=== PATIENT | male | born 1945 | race African-American/Black ===

== ENCOUNTER 2020-04-30 11:11 | Inpatient (IN) | payer OTHER ==
[~2020-04-30] VITALS: Ht 188 cm; Wt 105.7 kg
[~2020-04-30 11:11] MED LIST: VICODIN ES TAB1 EACH PO
[2020-04-30 11:31] VITALS: BP 116/75
[2020-04-30 11:59] LABS: HEMOGLOBIN 16.5 gm/dL (14.0-18.0); MCH 31.3 pg (26.0-34.0); MCHC 35.2 g/dL (28.0-37.0); MCV 88.9 fL (80.0-100.0); MPV 8.1 fl. (7.2-11.1); NUCLEATED RBCS 0 /100WBC; PLATELET COUNT* 263 thou/uL (150-400); RBC 5.29 mil/uL (4.50-6.00); RDW-CV 12.3 % (10.5-14.5); WBC 9.3 thou/uL (4.0-11.0)
[2020-04-30 12:09] LABS: BE -3.6 mmol/L (-2 to +3); PCO2 24.4 mmHg (35.0-45.0); PO2 72.2 mmHg (75.0-100.0); pH 7.479 (7.340-7.450)
[2020-04-30 12:12] LABS: CALCIUM 8.9 mg/dL (8.5-10.1); CREATININE 1.7 mg/dL (0.6-1.3); POTASSIUM 4.1 mmol/L (3.5-5.1)
[2020-04-30 12:17] LABS: ALBUMIN 3.4 g/dL (3.4-5.0); MAGNESIUM 2.6 mg/dL (1.8-2.4); TOTAL BILIRUBIN 1.6 mg/dL (<0.1-1.0); TOTAL PROTEIN 8.3 g/dL (6.4-8.2)
[2020-04-30 12:44] LABS: ABSOLUTE LYMPHOCYTES 0.8 thou/uL (0.8-5.3); ABSOLUTE MONOCYTES 0.3 thou/uL (0.0-1.2); ABSOLUTE NEUTROPHILS 8.2 thou/uL (1.6-8.1); ATYPICAL LYMPHS 1 %; PLATELET ESTIMATE ADEQUATE
[2020-04-30 13:09] LABS: INR 1.1; PROTIME 11.5 Seconds (9.20-11.50)
--- NOTE | 2020-04-30 16:07 | EKG ---
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1945 Requested By: Zabrina Chi Order Number: [id number] MD: River Pagan Measurements Intervals [place] Rate: 112 P: 114 [place]: 162 QRS: 219 QRSD: 88 T: 175 QT: 363 QTc: 496 Interpretive Statements Right and left arm electrode reversal, interpretation assumes no reversal Sinus tachycardia Possible lateral infarct, age indeterminate Compared to ECG 02/17/2010 10:14:29 Leads which has occurred Sinus bradycardia no longer present Atrial premature complex(es) no longer present Electronically Signed On 04-30-2020 16:07:15 CDT by River Pagan [email or web address] <ELECTRONICALLY SIGNED> By: River Pagan MD, [facility] 04/30/20 1607 1144 1144 River Pagan MD, [facility] /EPI
[2020-04-30 16:48] VITALS: BP 148/79
[2020-04-30 17:29] LABS: URINE BILIRUBIN NEGATIVE (Negative); URINE BLOOD 1+ (Negative); URINE CLARITY CLEAR; URINE COLOR YELLOW; URINE GLUCOSE-RANDOM NEGATIVE (Negative); URINE KETONES 1+ (Negative); URINE LEUKOCYTES-REFLEX NEGATIVE (Negative); URINE NITRITE-REFLEX NEGATIVE (Negative); URINE PROTEIN 1+ (Negative); URINE SPECIFIC GRAVITY 1.025 (1.005-1.030)
[2020-04-30 17:36] LABS: CRYSTALS None Seen /LPF (None Seen); HYALINE CASTS 0-3 Few /LPF (None Seen); MUCUS None Seen strn/LPF (None Seen); SQUAMOUS 0-3 Few /LPF (0-3); URINE RBC 0-2 Rare /HPF (0-2); URINE WBC-REFLEX 0-5 Rare /HPF (0-5)
[2020-04-30 17:37] LABS: BACTERIA-REFLEX 1-9 Few /HPF (None Seen)
[2020-04-30 19:45] VITALS: BP 124/78
[2020-05-01 03:41] LABS: HEMATOCRIT 38.4 % (42.0-52.0); MCH 31.8 pg (26.0-34.0); MCHC 35.8 g/dL (28.0-37.0); MCV 88.9 fL (80.0-100.0); MPV 7.9 fl. (7.2-11.1); RBC 4.31 mil/uL (4.50-6.00); RDW-CV 12.2 % (10.5-14.5); WBC 5.9 thou/uL (4.0-11.0)
[2020-05-01 03:45] LABS: HEMOGLOBIN 13.7 gm/dL (14.0-18.0)
[2020-05-01 03:59] LABS: ALBUMIN 2.6 g/dL (3.4-5.0); CALCIUM 8.2 mg/dL (8.5-10.1); CREATININE 1.1 mg/dL (0.6-1.3); MAGNESIUM 2.7 mg/dL (1.8-2.4); POTASSIUM 4.4 mmol/L (3.5-5.1); TOTAL BILIRUBIN 0.7 mg/dL (<0.1-1.0); TOTAL PROTEIN 6.8 g/dL (6.4-8.2)
[2020-05-01 10:04] VITALS: BP 122/88
[2020-05-01 11:45] VITALS: BP 127/81
[2020-05-01 17:25] VITALS: BP 129/80
[2020-05-01 20:10] VITALS: BP 138/82
[2020-05-01] MEDS ORDERED: VITAMIN C500 M1 PO (21:24)
[2020-05-02] VITALS: BP 119/77
[2020-05-02 07:43] VITALS: BP 92/55
[2020-05-02 08:07] LABS: HEPATITIS B SURFACE AG Negative (Negative); HIV-1/HIV-2 ANTIBODY Non Reactive (Non Reactive)
[2020-05-02 12:41] VITALS: BP 119/76
[2020-05-02 12:48] VITALS: BP 119/76
[2020-05-02 13:06] LABS: ABSOLUTE LYMPHOCYTES 0.3 thou/uL (0.8-5.3); ABSOLUTE MONOCYTES 0.5 thou/uL (0.0-1.2); ABSOLUTE NEUTROPHILS 7.4 thou/uL (1.6-8.1); BASOPHILS 0.3 %; HEMOGLOBIN 14.3 gm/dL (14.0-18.0); LYMPHOCYTES 3.9 %; MCH 31.5 pg (26.0-34.0); MCHC 34.8 g/dL (28.0-37.0); MCV 90.5 fL (80.0-100.0); MONOCYTES 6.2 %; MPV 8.5 fl. (7.2-11.1); NUCLEATED RBCS 0 /100WBC; PLATELET COUNT* 244 thou/uL (150-400); POLYS 89.6 %; RBC 4.53 mil/uL (4.50-6.00); RDW-CV 12.2 % (10.5-14.5); WBC 8.2 thou/uL (4.0-11.0)
[2020-05-02 13:23] LABS: ALBUMIN 2.8 g/dL (3.4-5.0); CALCIUM 7.9 mg/dL (8.5-10.1); CREATININE 1.1 mg/dL (0.6-1.3); POTASSIUM 3.9 mmol/L (3.5-5.1); TOTAL BILIRUBIN 0.7 mg/dL (<0.1-1.0); TOTAL PROTEIN 7.1 g/dL (6.4-8.2)
[2020-05-02 19:50] VITALS: BP 148/74
[2020-05-03] VITALS: BP 138/82
[2020-05-03 08:00] VITALS: BP 134/111
[2020-05-03 12:15] LABS: NUCLEATED RBCS 0 /100WBC; WBC 7.6 thou/uL (4.0-11.0)
[2020-05-03 12:18] LABS: HEMATOCRIT 37.7 % (42.0-52.0); HEMOGLOBIN 13.1 gm/dL (14.0-18.0); MCH 31.1 pg (26.0-34.0); MCHC 34.8 g/dL (28.0-37.0); MCV 89.2 fL (80.0-100.0); MPV 8.7 fl. (7.2-11.1); PLATELET COUNT* 242 thou/uL (150-400); RBC 4.23 mil/uL (4.50-6.00); RDW-CV 12.5 % (10.5-14.5)
[2020-05-03 12:20] LABS: CALCIUM 7.5 mg/dL (8.5-10.1); POTASSIUM 3.9 mmol/L (3.5-5.1)
[2020-05-03 12:24] LABS: ALBUMIN 2.4 g/dL (3.4-5.0); MAGNESIUM 1.9 mg/dL (1.8-2.4); PHOSPHORUS* 2.1 mg/dL (2.5-4.9); TOTAL BILIRUBIN 0.4 mg/dL (<0.1-1.0)
[2020-05-03 12:37] LABS: ABSOLUTE LYMPHOCYTES 0.3 thou/uL (0.8-5.3); ABSOLUTE MONOCYTES 0.4 thou/uL (0.0-1.2); ABSOLUTE NEUTROPHILS 6.9 thou/uL (1.6-8.1); ANISOCYTOSIS 1+; PLATELET ESTIMATE ADEQUATE; POIKILOCYTOSIS 1+
[2020-05-03 16:40] LABS: CALCIUM 7.6 mg/dL (8.5-10.1); CREATININE 1.1 mg/dL (0.6-1.3); POTASSIUM 4.4 mmol/L (3.5-5.1)
[2020-05-03 16:43] LABS: MAGNESIUM 1.7 mg/dL (1.8-2.4); PHOSPHORUS* 2.7 mg/dL (2.5-4.9)
--- NOTE | 2020-05-03 17:40 | CON ---
[address] [address] CONSULTATION Name: MALIK BRUNO Room: [address] IN .R.#: [id number] Admission: 04/30/20 Attend Phys: Diego Massey MD Discharge: Date of : 47 Report #: [id number] THIS REPORT FOR: //name// cc: Lio Hernandez MD, Anthony MD ~ THIS REPORT FOR: //name// CC: Lio Massey DATE OF SERVICE: 05/03/2020 CONSULT REQUESTED BY: Dr. Camacho. INDICATION FOR CONSULTATION: Acute hypoxemic respiratory failure secondary to COVID-19. HISTORY OF PRESENT ILLNESS: This is a 74-year-old gentleman. He is a lifetime nonsmoker and does not have a previous history of cardiac or respiratory disease. The patient, however, does have a history of diabetes and his body mass index is elevated to 31. The patient is now admitted on 04/30/2020. Presentation was with a high-grade fever of 102 degrees Fahrenheit. The patient also had chills, was coughing, but not bringing up any sputum, was having significant increase in shortness of breath. The patient had had generalized weakness. He had also complained of aches and pains, had severe intractable nausea and vomiting and therefore, was unable to keep any fluids down. The patient was noted to be in acute renal failure with a creatinine of 1.7. His baseline creatinine is normal upon initial presentation. The patient since then has been fluid resuscitated. His creatinine has returned back to the normal range. The patient has also been treated with dexamethasone as well as remdesivir; however, there has been a progressive increase in his shortness of breath and oxygen needs. The patient initially required oxygen 4 liters to maintain O2 saturation in the low 90s. This was subsequently tapered down to 2 liters, but since then there has been a progressive increase in oxygen needs. The patient is currently on 8 liters nasal cannula and whenever he is opening his mouth, he is desaturating significantly, when asked to breathe exclusively through his nose he is maintaining O2 saturation in the low 90s. The patient is visibly short of breath at rest. He also reports increasing shortness of breath. He reports an increasing cough. He reports that there is only scanty amounts of sputum at this time still. The patient also has remained febrile with a temperature of 37.4 consistent with low-grade fever this morning. He does not have swelling of lower extremities, he does not have calf pain. I just had a stat chest x-ray performed. It does show significant infiltrates bilaterally. Most of these are new compared with the patient's initial chest x-ray performed on 04/30/2020. The patient is short [place] [address] CONSULTATION Name: MALIK BRUNO Chloe Room: [address] IN [facility]#: [id number] Admission: 04/30/20 Attend Phys: Diego Massey MD Discharge: Date of : 47 Report #: [id number] is able to provide only a limited review of systems as obtained from the patient. REVIEW OF SYSTEMS: Negative for 12 points except as mentioned above. PAST MEDICAL HISTORY: Diabetes. The patient has a normal creatinine at baseline and does not have a history of cardiac or respiratory disease. Obesity, body mass index elevated to 31. SOCIAL HISTORY: Lifetime nonsmoker. No known history of heavy alcohol use or illegal drug use. FAMILY HISTORY: There is no pertinent family history known at this time. CURRENT MEDICATIONS: List in mTraks reviewed. HOME MEDICATIONS: List also in mTraks reviewed. PHYSICAL EXAMINATION: GENERAL: He is alert, awake and oriented. He is significantly short of breath at rest, most of the respiratory rates are previously charted in the high teens however, at the time of my examination, the patient's respiratory rate was around 28-30, but the patient had also just urinated and had a chest x-ray. VITAL SIGNS: He is on 8 liters nasal cannula. His O2 saturations have been dropping into the 80s whenever he is not consistently breathing exclusively through his nose he is in the low 90s. His pulse is around 100, blood pressure last charted at 134/111, temperature 37.3 and 37.4 this morning. HEENT: Head is normocephalic and atraumatic. NECK: Does not show raised JVP, asymmetry, mass or lymph nodes. CHEST: Symmetrical expansion on inspection and palpation. On auscultation, breath sounds bilaterally equal but decreased. I do not hear any added sounds. HEART: Regular. There is no murmur. ABDOMEN: Soft and nontender. EXTREMITIES: Lower extremities show no edema, no calf tenderness. SKIN: Dry and intact. NEUROLOGICAL: Moves all extremities bilaterally equally and spontaneously with no focal deficit identified. LABORATORY DATA: A stat chest x-ray does show significant worsening infiltrates in fact most of the infiltrates are new compared with the . There likely is some increase in pulmonary vascular congestion as well. I requested a CBC and CMP and magnesium to be added to his lab work this morning. The CBC is in mTraks already and this is reviewed. Chemistries are still being run on these labs and are pending at this time. His previous chemistries are in mTraks and these are reviewed. Coagulation studies in [facility] reviewed, elevated D-dimer noted. Arterial blood gas from 2 days ago consistent with acute hypoxemic type [facility] [address] [place] [address] CONSULTATION Name: MALIK BRUNO Room: [address] IN [facility]#: [id number] Admission: 04/30/20 Attend Phys: Diego Massey MD Discharge: Date of : 47 Report #: [id number] respiratory failure in [facility] reviewed. The patient's COVID-19 antigen was positive on admission. His hepatitis B core antibody was also positive, but hepatitis B surface antigen was negative. He is suggested for HIV and found to be negative on admission. ASSESSMENT AND PLAN: 1. Acute hypoxemic respiratory failure secondary to COVID-19: We will continue to titrate oxygen. We will place him on a continuous pulse ox. The patient potentially could benefit from a BiPAP while asleep and p.r.n. The patient currently is not in a negative pressure room. We will check availability of a negative pressure room. If feasible, I would like to transfer him to a negative pressure room and then start with BiPAP while asleep and p.r.n. The patient may also have a component of bronchospasm. Again, I did not add nebulized bronchodilators considering he is not in a negative pressure room and albuterol inhaler is ordered. If we are able to find a negative pressure room, then I would favor switching this over to Brovana via a nebulizer. 2. COVID-19: I agree with remdesivir, will continue. It is possible that the patient needs a longer course of remdesivir provided it is available. Note that the guidelines allow an increase in remdesivir duration to up to 10 days in seriously ill patient. I will also continue with corticosteroids considering worsening infiltrates and hypoxia. I have significantly increased the dose of corticosteroids. This is likely to result in significant hyperglycemia. I would recommend adjusting the patient's insulin accordingly. For now, I held off on recommending Actemra; however, if the patient's hypoxia continues to worsen, then will need to check on whether a dose of Actemra could be made available. 3. Pulmonary infiltrates: There are florid bilateral pulmonary infiltrates. This is significantly worse than his initial chest x-ray. Certainly COVID-19 by itself can also cause significant infiltrates; however, the possibility of secondary bacterial pneumonia is not ruled out and therefore, I will go ahead and start him on levofloxacin. More cultures and serologies are also ordered. 4. Acute renal failure/mild fluid overload: The patient's chemistries just became available while I was dictating and these are reviewed. The patient's creatinine is now normal at 1.0, but BUN is mildly elevated at 20. We will watch him closely. 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 I will review further it is possible that I could cautiously administer one dose of Lasix. 5. Evaluation for thromboembolic phenomena. The patient is noted to be on full dose anticoagulation. COVID-19 does cause a hypercoagulable state. At this time as for now continue with full dose anticoagulation. We will go ahead and obtain venous Dopplers. We will follow along and based on the patient's response, either consider a CTA chest or alternately consider an echocardiogram as well as a perfusion scan to assess whether full dose anticoagulation should be continued for now. 6. Diabetes. I would expect significant increase in glucose as a result of increase in steroids. Recommend more insulin accordingly. [address] [address] CONSULTATION Name: MALIK BRUNO Room: [address]#: [id number] Admission: 04/30/20 Attend Phys: Diego Massey MD Discharge: Date of : 47 Report #: [id number] 7. Clostridium difficile prophylaxis. The patient is on Florastor. The patient is critically ill at this time. Total time spent providing critical care to this patient today is 45 minutes. <ELECTRONICALLY SIGNED> By: Liam Abdullahi MD 05/03/20 1740 1226 1412Ayaron Abdullahi MD /nt
[2020-05-03 19:50] VITALS: BP 146/72
[2020-05-04 00:07] VITALS: BP 142/83
[2020-05-04 04:01] VITALS: BP 133/76
[2020-05-04 07:30] LABS: ABSOLUTE LYMPHOCYTES 0.4 thou/uL (0.8-5.3); ABSOLUTE MONOCYTES 0.7 thou/uL (0.0-1.2); ABSOLUTE NEUTROPHILS 6.1 thou/uL (1.6-8.1); BASOPHILS 0.1 %; HEMATOCRIT 38.3 % (42.0-52.0); HEMOGLOBIN 13.6 gm/dL (14.0-18.0); LYMPHOCYTES 5.6 %; MCH 31.3 pg (26.0-34.0); MCHC 35.6 g/dL (28.0-37.0); MONOCYTES 9.9 %; MPV 7.6 fl. (7.2-11.1); NUCLEATED RBCS 0 /100WBC; PLATELET COUNT* 273 thou/uL (150-400); POLYS 84.4 %; RBC 4.35 mil/uL (4.50-6.00); RDW-CV 12.5 % (10.5-14.5); WBC 7.2 thou/uL (4.0-11.0)
[2020-05-04 08:00] VITALS: BP 128/73
[2020-05-04 08:42] LABS: ALBUMIN 2.4 g/dL (3.4-5.0); CALCIUM 7.8 mg/dL (8.5-10.1); POTASSIUM 4.2 mmol/L (3.5-5.1); TOTAL BILIRUBIN 0.8 mg/dL (<0.1-1.0); TOTAL PROTEIN 6.4 g/dL (6.4-8.2)
[2020-05-04 12:01] VITALS: BP 110/76
[2020-05-04 16:00] VITALS: BP 126/81
[2020-05-04 20:00] VITALS: BP 113/71
[2020-05-05] VITALS: BP 130/79
[2020-05-05 05:06] LABS: ABSOLUTE LYMPHOCYTES 0.6 thou/uL (0.8-5.3); ABSOLUTE MONOCYTES 0.8 thou/uL (0.0-1.2); ABSOLUTE NEUTROPHILS 9.5 thou/uL (1.6-8.1); BASOPHILS 0.1 %; HEMATOCRIT 36.8 % (42.0-52.0); LYMPHOCYTES 5.3 %; MCH 30.8 pg (26.0-34.0); MCHC 35.4 g/dL (28.0-37.0); MONOCYTES 7.7 %; MPV 7.8 fl. (7.2-11.1); NUCLEATED RBCS 0 /100WBC; PLATELET COUNT* 306 thou/uL (150-400); POLYS 86.9 %; RBC 4.23 mil/uL (4.50-6.00); WBC 10.9 thou/uL (4.0-11.0)
[2020-05-05 05:16] LABS: CALCIUM 8.2 mg/dL (8.5-10.1); CREATININE 0.9 mg/dL (0.6-1.3); MAGNESIUM 2.1 mg/dL (1.8-2.4); POTASSIUM 3.8 mmol/L (3.5-5.1)
[2020-05-05 08:00] VITALS: BP 126/84
[2020-05-05 15:09] VITALS: BP 117/66
[2020-05-05 20:00] VITALS: BP 127/78
[2020-05-06 05:00] VITALS: BP 126/78
[2020-05-06 05:19] LABS: HEMATOCRIT 39.2 % (42.0-52.0); HEMOGLOBIN 13.9 gm/dL (14.0-18.0); MCH 31.2 pg (26.0-34.0); MCHC 35.4 g/dL (28.0-37.0); MCV 88.1 fL (80.0-100.0); MPV 7.7 fl. (7.2-11.1); NUCLEATED RBCS 0 /100WBC; PLATELET COUNT* 315 thou/uL (150-400); RBC 4.45 mil/uL (4.50-6.00); RDW-CV 12.4 % (10.5-14.5); WBC 10.4 thou/uL (4.0-11.0)
[2020-05-06 05:57] LABS: ALBUMIN 2.4 g/dL (3.4-5.0); CALCIUM 7.7 mg/dL (8.5-10.1); CREATININE 1.1 mg/dL (0.6-1.3); POTASSIUM 3.9 mmol/L (3.5-5.1); TOTAL BILIRUBIN 0.6 mg/dL (<0.1-1.0); TOTAL PROTEIN 6.2 g/dL (6.4-8.2)
[2020-05-06 06:56] LABS: ABSOLUTE MONOCYTES 1.1 thou/uL (0.0-1.2); ABSOLUTE NEUTROPHILS 7.3 thou/uL (1.6-8.1); ATYPICAL LYMPHS 2 %; METAMYELOCYTES 4 %; PLATELET ESTIMATE ADEQUATE
[2020-05-06 07:59] VITALS: BP 127/76
[2020-05-06 12:00] VITALS: BP 128/80
[2020-05-06 16:09] VITALS: BP 117/74
[2020-05-06 20:00] VITALS: BP 148/76
[2020-05-07] VITALS: BP 108/71
[2020-05-07 04:00] VITALS: BP 121/62
[2020-05-07 07:50] VITALS: BP 127/73
[2020-05-07 11:03] VITALS: BP 121/62
[2020-05-07] MEDS ORDERED: LAXATIVE5 M1 PO (11:36)
[2020-05-07] MEDS ORDERED: LEVAQUIN 500 M500 M3 PO (11:36)
[2020-05-07 12:22] VITALS: BP 121/62
[2020-05-07] MEDS ORDERED: RAYOS5 MG PO (12:42)
[2020-05-07 14:49] VITALS: BP 121/62
== END 2020-05-07 15:30 | disposition home or self-care (01) | DRG 871 ==
LOC: M.ERS 11:11 → M.TBA-ER 14:00 → M.2W 14:00 → M.ICU 05-03 23:38 → M.2W 05-04 22:23
PROVIDERS: Internal Medicine; Internal Medicine Critical Care Medicine; Personal Emergency Response Attendant; ADMIT Internal Medicine; ATTEND Internal Medicine
PROC: XW033E5 Introduction of Remdesivir Anti-infective into Peripheral Vein, Percutaneous Approach, New Technology Group 5 (ICD-10-PCS; 2020-04-30)
PROC: XW033E5 Introduction of Remdesivir Anti-infective into Peripheral Vein, Percutaneous Approach, New Technology Group 5 (ICD-10-PCS; 2020-05-01)
PROC: 5A09357 Assistance with Respiratory Ventilation, Less than 24 Consecutive Hours, Continuous Positive Airway Pressure (ICD-10-PCS; principal; 2020-05-04)
DX: A41.89 Other specified sepsis (principal); U07.1 COVID-19; N17.0 Acute kidney failure with tubular necrosis; J12.89 Other viral pneumonia; J96.01 Acute respiratory failure with hypoxia; E11.9 Type 2 diabetes mellitus without complications; E86.9 Volume depletion, unspecified; E66.9 Obesity, unspecified; Z68.29 Body mass index [BMI] 29.0-29.9, adult

== ENCOUNTER → 2020-08-01 | Outpatient (CLI) | payer OTHER ==
[~2020-08-01] MED LIST changes: +LAXATIVE5 M1 PO; +LEVAQUIN 500 M500 M3 PO; +RAYOS5 MG PO; +VITAMIN C500 M1 PO
--- NOTE | 2020-08-19 07:59 | PF ---
[address] [address] PULMONARY FUNCTION REPORT Name: MALIK BRUNO Room: [facility]#: [id number] Admission: 08/01/20 Attend Phys: Liam Abdullahi MD Discharge: Date of : 47 Report #: [id number] THIS REPORT FOR: //name// CC: Liam Abdullahi Lio Mary DATE OF SERVICE: 08/01/2020 The FEV1/FVC ratio is normal at 76%, but the FVC has decreased to 57% and FEV1 also decreased to 59%. The [id number] has also decreased to 65%. After the administration of a bronchodilator, there is no significant increase in any of these values. The patient's post-bronchodilator FEV1 is noted to be 2.24 L. The total lung capacity has decreased to 70% with a residual volume mildly decreased to 77%. The DLCO as adjusted for hemoglobin has markedly decreased to 49%. IMPRESSION: 1. Restriction is present with a total lung capacity decreased to 70%. 2. Restriction is more marked on spirometry compared to the lung volumes and also the flow volume loop is noted to be concave upwards and therefore, there is suspicion that underlying uygl-am-smnboebn obstruction may also be present. Poor effort and neuromuscular weakness can also give this picture. 3. DLCO as mentioned is reduced to 49% as adjusted for hemoglobin. <ELECTRONICALLY SIGNED> By: Liam Abdullahi MD 08/19/20 0759 0716 0725MD augusto Charles
== END ==
LOC: M.PUL 09:28
PROVIDERS: ATTEND Internal Medicine Critical Care Medicine
DX: U07.1 COVID-19 (principal); R91.8 Other nonspecific abnormal finding of lung field; J44.9 Chronic obstructive pulmonary disease, unspecified

== ENCOUNTER → 2020-08-09 | Outpatient (CLI) | payer OTHER ==
--- NOTE | 2020-08-19 07:59 | SLEEP ---
[address] [address] SLEEP STUDY REPORT Name: MALIK BRUNO Room: [facility]#: [id number] Admission: 08/09/20 Attend Phys: Liam Abdullahi MD Discharge: Date of : 47 Report #: [id number] THIS REPORT FOR: //name// CC: Liam Hernandez This study has been reviewed in its entirety by a board certified sleep specialist DATE OF SERVICE: 08/09/2020 INTERPRETATION: The total duration of the study is 442 minutes out of which he was asleep for 227 minutes with an overall sleep efficiency decreased to 52%. Sleep onset occurred around 15 minutes after lying down in bed. N1 sleep duration was 28%, N2 duration was 61%, N3 duration was 3% and REM duration was 8%. We did record occasional sleep related respiratory events. These included 6 obstructive apneas, 9 hypopneas and 19 respiratory effort related Arousals. Overall, apnea-hypopnea index was 4.2 with respiratory disturbance index mildly elevated to 6.7. Body position data indicates the patient was lying on the right side throughout the sleep study. Mean heart rate was 64. Periodic limb movement index was elevated to 54. Most limb movements, however, were not associated with arousals. Arousal index was mildly elevated to 21. There were also occasional desaturations recorded. O2 saturation, however, mostly maintained at or above 88%. IMPRESSION: There are occasional sleep related respiratory events recorded. Overall, apnea-hypopnea index, however, is 4.2, which is below criteria for a diagnosis of obstructive sleep apnea. The patient's sleep efficiency, however, is also noted to be decreased to 51.5% and there is a reduction in total sleep time. This may have lead to an underestimation of the apnea-hypopnea index. The patient is also noted to be on the right side throughout the sleep study and there is no supine sleep recorded. RECOMMENDATIONS: 1. If suspicion of obstructive sleep apnea remains high, then considering a reduced sleep efficiency in this sleep study. A repeat sleep study to assess further possibly after the administration of a hypnotic agent can be considered later. 2. Recommend continuing to avoid sleeping supine. 3. Recommend weight loss. This entire sleep study was reviewed by board certified sleep physician. <ELECTRONICALLY SIGNED> By: Liam Abdullahi MD 08/19/20 0759 0744 0753Ayaron Abdullahi MD /nt
== END ==
LOC: M.SLEEPLAB 20:00
PROVIDERS: ATTEND Internal Medicine Critical Care Medicine
DX: G47.10 Hypersomnia, unspecified (principal)

== ENCOUNTER 2021-04-05 12:10 | Emergency (ER) | payer OTHER ==
[~2021-04-05] VITALS: Ht 188 cm; Wt 112.5 kg
[2021-04-05 12:39] LABS: ABSOLUTE EOSINOPHILS 0.1 thou/uL (0.0-0.7); ABSOLUTE LYMPHOCYTES 1.2 thou/uL (0.8-5.3); ABSOLUTE MONOCYTES 0.6 thou/uL (0.0-1.2); ABSOLUTE NEUTROPHILS 3.3 thou/uL (1.6-8.1); BASOPHILS 0.7 %; EOSINOPHILS 2.1 %; HEMATOCRIT 41.6 % (42.0-52.0); HEMOGLOBIN 14.6 gm/dL (14.0-18.0); MCH 31.6 pg (26.0-34.0); MCHC 35.2 g/dL (28.0-37.0); MCV 89.7 fL (80.0-100.0); MPV 8.6 fl. (7.2-11.1); NUCLEATED RBCS 0 /100WBC; PLATELET COUNT* 201 thou/uL (150-400); POLYS 63.2 %; RBC 4.64 mil/uL (4.50-6.00); RDW-CV 12.9 % (10.5-14.5); WBC 5.2 thou/uL (4.0-11.0)
[2021-04-05 12:48] LABS: CALCIUM 9.2 mg/dL (8.5-10.1); CREATININE 1.2 mg/dL (0.6-1.3); POTASSIUM 4.1 mmol/L (3.5-5.1)
[2021-04-05 12:53] LABS: ALBUMIN 3.7 g/dL (3.4-5.0); TOTAL BILIRUBIN 0.4 mg/dL (<0.1-1.0); TOTAL PROTEIN 7.1 g/dL (6.4-8.2)
[2021-04-05] MEDS ORDERED: GLIPIZIDE ER5 MG PO (13:05)
[2021-04-05] MEDS ORDERED: VITAMIN D3125 MC2 PO (13:06)
[2021-04-05] MEDS ORDERED: JANUMET 50-1,01 EACH PO (13:06)
[2021-04-05 13:21] VITALS: BP 126/64
--- NOTE | 2021-04-06 11:31 | EKG ---
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[facility] : 1945 Requested By: Last Whelan Order Number: [id number] MD: Chetan Rivera Measurements Intervals [place] Rate: 74 P: 38 TN: 209 QRS: -42 QRSD: 91 T: -14 QT: 388 QTc: 431 Interpretive Statements Sinus rhythm nonspecific t wave changes Atrial premature complex Inferior infarct, 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
== END 2021-04-05 13:23 | disposition short-term general hospital (02) ==
LOC: M.ERS 12:10
PROVIDERS: Emergency Medicine Emergency Medical Services
DX: S06.2X0A Diffuse traumatic brain injury without loss of consciousness, initial encounter (principal); Z20.822 Contact with and (suspected) exposure to COVID-19; E11.9 Type 2 diabetes mellitus without complications; W18.39XA Other fall on same level, initial encounter; Y93.89 Activity, other specified; Y92.89 Other specified places as the place of occurrence of the external cause; Y99.8 Other external cause status

== ENCOUNTER 2021-04-13 16:36 | Inpatient (IN) | payer OTHER ==
[~2021-04-13] VITALS: Ht 188 cm; Wt 101.7 kg
[~2021-04-13 16:36] MED LIST changes: +GLIPIZIDE ER5 MG PO; +JANUMET 50-1,01 EACH PO; +VITAMIN D3125 MC2 PO
[2021-04-14] MEDS ORDERED: INCRUSE ELLI62.5 MCG INH (10:14)
[2021-04-14] MEDS ORDERED: ATROVENT HFA14 GM INH (10:15)
[2021-04-14] MEDS ORDERED: ARICEPT10 M1 PO (10:15)
[2021-04-14] MEDS ORDERED: CALCIUM CARBON500 MG PO (10:16)
[2021-04-14] MEDS ORDERED: LANTUS100 UNIT/M SUBQ (10:16)
[2021-04-14] MEDS ORDERED: INSULIN AS100 UNIT/2 SUBQ (10:18)
[2021-04-14 13:00] VITALS: BP 126/75
--- NOTE | 2021-04-14 17:40 | NUR ---
PATIENT ADMITTED FROM [facility] THIS AFTERNOON. REPORT RECEIVED FROM ESPERANZA ROBLEDO. ALERT AND ORIENTED X 4, PATIENT DOES HAVE SOME FORGETFULLNESS. SCD'S PATIENT CANNOT HAVE ANTICOAGULANTS OR ASPIRIN. UP WITH ASSISTANCE, GAIT BELT AND WALKER. ACCUCHECK AC/HS. NO COMPLAINTS OF PAIN. CALL LIGHT WITHIN REACH.
[2021-04-14 19:00] VITALS: BP 132/76
--- NOTE | 2021-04-15 04:54 | NUR ---
ASSUMED CARE AT 1920. ALERT AND ORIENTED. PLEASANT. DENIED ANY PAIN. C/O INDIGESTION. MYLANTA GIVEN. NO FURTHER COMPLAINT. REFUSED HS SNACK. USED URINAL. SLEPT OFF AND ON. CALL LIGHT IN REACH AND BED ALARM ON.
[2021-04-15 05:25] LABS: MCH 31.3 pg (26.0-34.0); MCHC 35.8 g/dL (28.0-37.0); MCV 87.5 fL (80.0-100.0); MPV 8.2 fl. (7.2-11.1); RBC 4.46 mil/uL (4.50-6.00); RDW-CV 12.7 % (10.5-14.5); WBC 7.7 thou/uL (4.0-11.0)
[2021-04-15 05:37] LABS: CALCIUM 9.3 mg/dL (8.5-10.1); CREATININE 0.9 mg/dL (0.6-1.3); POTASSIUM 4.1 mmol/L (3.5-5.1)
[2021-04-15 07:30] VITALS: BP 122/76
--- NOTE | 2021-04-15 13:26 | NUR ---
Nutrition: Admit to rehab. Pt had just finished lunch at visit, intake good and reports good appeite. Reports UBW 250 lb but had been trying to lose wt. BUN 19. Meds reviewed. Pt denied any nutrition concerns. Assessed at low risk.
--- NOTE | 2021-04-15 17:03 | NUR ---
PATIENT COMPLETED THERAPIES THIS SHIFT ORDERED. UP WITH GAIT BELT AND WALKER. NO COMPLAINTS OF PAIN. VOIDING PER URINAL. AM LABS AND TEAM MEETING TOMORROW.
[2021-04-15 19:00] VITALS: BP 111/67
[2021-04-16 04:50] LABS: HEMATOCRIT 37.8 % (42.0-52.0); HEMOGLOBIN 13.4 gm/dL (14.0-18.0); MCH 31.3 pg (26.0-34.0); MCHC 35.3 g/dL (28.0-37.0); MCV 88.7 fL (80.0-100.0); MPV 8.1 fl. (7.2-11.1); RBC 4.26 mil/uL (4.50-6.00); RDW-CV 12.8 % (10.5-14.5); WBC 6.5 thou/uL (4.0-11.0)
[2021-04-16 04:58] LABS: CALCIUM 9.1 mg/dL (8.5-10.1); CREATININE 0.9 mg/dL (0.6-1.3); POTASSIUM 3.7 mmol/L (3.5-5.1)
--- NOTE | 2021-04-16 05:27 | NUR ---
ASSUMED CARE AT 1920. ALERT AND ORIENTED. PLEASANT. DENIED ANY PAIN. USED URINAL. SLEPT WELL. CALL LIGHT IN REACH AND BED ALARM ON.
[2021-04-16 07:30] VITALS: BP 120/73
--- NOTE | 2021-04-16 16:01 | NUR ---
I have reviewed the documentation by BRITTANY SILVESTRE from 04/16/21 to 04/16/21 and I concur with it. ESPERANZA GROVER
--- NOTE | 2021-04-16 17:27 | NUR ---
PATIENT COMPLETED THERAPIES THIS SHIFT ORDERED. PATIENT A RETEAM. UP WITH ASSISTANCE; GAIT BELT AND WALKER. PRODUCTION LEAD NOTIFIED NURSE OF SMALL AREA INSIDE TOP OF LEFT BUTTOCK, PRODUCTION LEAD NOTICIED IT WHEN WIPING PATIENT AFTER BM. AREA PINK AND DRY. PHOTO TAKEN PER PROTOCOL AND BARRIER CREAM APPLIED. WOUND NURSE NOTIFIED. PATIENT NOTIFIED THAT DAILY INHALER UNAVAILABLE HERE AND IF NEEDED WOULD NEED TO BRING FROM HOME. VOIDING PER URINAL. NO COMPLAINTS OF PAIN.
[2021-04-16 20:00] VITALS: BP 124/80
--- NOTE | 2021-04-17 00:37 | NUR ---
ASSUMED CARE AT 1915. PATIENT RESTING IN BED. TURNS SELF. TAKES PILLS WHOLE WITH WATER. VOIDS PER URINAL. MOISTURE BARRIER TO BUTTOCKS. BLOOD SUGAR AT HS 83, GLIPIZIDE ER 5 MG, LANTUS INSULIN HELD. NO NEED FOR SSI. DR. SERRANO NOTIFIED PER NHAN, NO NEW ORDERS. SHIVAM BAGLEY AT HS FOR SNACK. HOURLY ROUNDS CONTINUE. BED ALARM ON. CALL LITE IN REACH.
--- NOTE | 2021-04-17 05:16 | NUR ---
SLEPT MOST OF THE NIGHT. VOIDED PER URINAL. TURNS SELF. NO C/O PAIN. HOURLY ROUNDS CONTINUE. BED ALARM ON. CALL LITE IN REACH.
[2021-04-17 08:05] VITALS: BP 106/68
--- NOTE | 2021-04-17 09:22 | NUR ---
WOUND NURSE: PATIENT SEEN AT NURSE'S REQUEST FROM LATE YESTERDAY PM. PATIENT WITH VERY SMALL SUPERFICIAL ABRASION MEASURING 1.0 X 1.0 X 0.1 CM. NO DRAINAGE IS NOTED AND WOUDN BED WITH PINK NONGRANULATING TISSUE. THERE IS EARLY SCAR TISSUE FORM AROUND THE IRREGULAR EDGES. RECOMMEND MOISTURE BARRIER PASTE Q SHIFT. PATIENT INSTRUCTED TO OFFLOAD AFFECTED AREA WHEN POSSIBLE. HE STATES HE UNDERSTANDS.
[2021-04-17 19:50] VITALS: BP 120/71
--- NOTE | 2021-04-18 04:12 | NUR ---
PT A& X 4, VSS ON RA. MEDS GIVEN ORDERED. DENIED PAIN. USING URINAL TO VOID. SNACKS GIVEN PER PT REQUEST. BED ALARM ON. CALL LIGHT WITHIN REACH. WILL CONTINUE TO MONITOR.
[2021-04-18 07:30] VITALS: BP 108/74
--- NOTE | 2021-04-18 14:24 | NUR ---
I have reviewed the documentation by RANDY MOSS from 04/14/21 to 04/18/21 and I concur with it. LAUREL DIALLO
--- NOTE | 2021-04-18 16:01 | NUR ---
INITIAL ASSESSMENT: PATIENT ADMITTED TO THE [facility] ON 04/14/21 WITH A DIAGNOSIS OF INTRAPARENCHYMAL HEMORRHAGE. PT A&O, BUT FORGETFUL. PRIOR TO ADMIT PT RESIDED AT HOME WITH SPOUSE, AND SHE DOES THE COOKING AND CLEANING IN THE HOME. PT STILL DRIVING PRIOR TO ADMIT, BUT SPOUSE INFORMS THAT HE WAS NOT SAFE. PT USES 0 DME. PT HAS 0 HX OF HH OR SNF. 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 CM ORIENTED PT AND HIS SPOUSE TO THE IN ARU AND PROCESSES, RESIDENT'S RIGHTS INFO, TEAM CONFRENCE, AND TO THE ROLE OF CM. CM WILL REMAIN AVAILABLE TO ASSIST AND FOLLOW NEEDED.
--- NOTE | 2021-04-18 16:44 | NUR ---
Patient alert today , completed all therapies. Walking with gait belt and stand by without walker. all vitals stable. Patient voiding in rest room. No complaints of pain today. Patient has call light and in reach.
[2021-04-18 20:00] VITALS: BP 136/67
--- NOTE | 2021-04-18 23:25 | NUR ---
ASSUMED CARE AT 1915. PATIENT RESTING IN BED, TURNS SELF EASILY IN BED. VOIDS PER URINAL PER SELF, NURSING EMPTIES. TAKES PILLS WHOLE WITH WATER. NO C/O PAIN. REFUSED HS SNACK. VERY SOFT SPOKEN, BUT MAKES NEEDS KNOWN. ALERT, BUT DID NOT REMEMBER DAY, THINKING IT WAS WEDNESDAY INSTEAD OF WEDNESDAY. HOURLY ROUNDS CONTINUE. BED ALARM ON. CALL LITE IN REACH.
--- NOTE | 2021-04-19 05:55 | NUR ---
APPEARS SLEEPING ON ROUNDS. VOIDED PER URINAL. NO C/O PAIN. TURNS SELF. HOURLY ROUNDS CONTINUE. BED ALARM ON. CALL LITE IN REACH.
[2021-04-19 07:39] VITALS: BP 92/59
--- NOTE | 2021-04-19 17:50 | NUR ---
PT WORKED WITH THERAPIES. UP WITH GAIT BELT, WALKER, AND ASSIST X1. OPEN AREA ON INSIDE OF R BUTTOCK. BARRIER CREAM APPLIED. DENIES PAIN. FORGETFUL AND CONFUSED AT TIMES. INSISTED ON HAVING SHERBERT X2. RESULTED IN HIGH BLOOD GLUCOSES OF 276 AND 229. SSI GIVEN PER ORDER. CALL LIGHT IN REACH. FALL PRECAUTIONS IN PLACE.
[2021-04-19 19:00] VITALS: BP 114/66
[2021-04-20 07:23] VITALS: BP 99/69
--- NOTE | 2021-04-20 17:52 | NUR ---
PT UP WITH GAIT BELT, WALKER AND ASSIST X1. OPEN AREA TO R INSIDE BUTTOCK. BARRIER CREAM APPLIED. FAMILY VISITED. CALL LIGHT IN REACH. FALL PRECAUTIONS IN PLACE.
[2021-04-20 21:00] VITALS: BP 96/64
--- NOTE | 2021-04-21 05:05 | NUR ---
ASSUMED CARES AT 1920. ALERT AND ORIENTED. PLEASANT. DENIED ANY PAIN. HS SNACK GIVEN. USED URINAL. SLEPT WELL. CALL LIGHT IN REACH AND BED ALARM ON.
[2021-04-21 07:45] VITALS: BP 94/58
--- NOTE | 2021-04-21 16:27 | NUR ---
ALERT AND ORIENTED X4. UP WITH STAND BY ASSIST GAIT BELT AND WALKER. DENIES NEED FOR PAIN MEDICATION. TAKES PILLS WITHOUT DIFFICULTY. USES CALL LIGHT FOR ASSIST. FALL PRECAUTIONS IN PLACE BED ALARM AND CHAIR ALARM USED.
[2021-04-21 19:00] VITALS: BP 122/80
--- NOTE | 2021-04-22 05:14 | NUR ---
ASSUMED CARES AT 1920. ALERT AND ORIENTED. PLEASANT. DENIED ANY PAIN. USED URINAL. SLEPT WELL. CALL LIGHT IN REACH AND BED ALARM ON.
[2021-04-22 07:50] VITALS: BP 117/77
[2021-04-22 09:20] VITALS: BP 117/77
[2021-04-22 12:30] VITALS: BP 117/77
[2021-04-22 12:33] VITALS: BP 117/77
--- NOTE | 2021-04-22 13:29 | NUR ---
AM ASSESSMENT AND VITAL SIGNS COMPLETED DOCUMENTED. PT HAS MET HIS DISCHARGE GOALS. DISCHARGE INSTRUCTIONS PROVIDED TO PATIENT AND HIS SON. PATIENT AND HIS BELONGINGS WERE TRANSPORTED TO THE EXIT. DISCHARGED HOME IN STABLE CONDITION.
--- NOTE | 2021-04-22 15:45 | NUR ---
INPT CLINICAL ANALYST INFORMS OF TEAMS PLAN FOR THE PT TO D/C HOME TODAY WITH HH. CM SPOKE TO THE PT AND HIS SPOUSE TO DISCUSS THIS. PT'S SPOUSE INFORMS THAT SHE WAS NOT AWARE THAT THE PLAN WAS FOR THE PT TO D/C TODAY, BUT HER SON WOULD BE HERE TO PROVIDE THE PT TRANSPORT HOME. CM DISCUSS HH WITH PT'S SPOUSE AND SHE INFORMS THAT SHE HAS NO PREFERENCE. CM FAXED HH REFERRAL AND D/C ORDERS TO [facility]. [facility] ACCEPTED PT AND WILL CONTACT THE PT'S SPOUSE TO ARRANGE A TIME TO VISIT. CM WILL REMAIN AVAILABLE TO ASSIST AND FOLLOW NEEDED.
--- NOTE | 2021-04-22 16:04 | NUR ---
I have reviewed the documentation by RANDY MOSS from 04/21/21 to 04/22/21 and I concur with it. LAUREL DIALLO
== END 2021-04-22 13:38 | disposition home health service (06) | DRG 86 ==
LOC: M.REH 16:36
PROVIDERS: ADMIT Physical Medicine & Rehabilitation; ATTEND Physical Medicine & Rehabilitation
DX: S06.340A Traumatic hemorrhage of right cerebrum without loss of consciousness, initial encounter (principal); G81.91 Hemiplegia, unspecified affecting right dominant side; E11.9 Type 2 diabetes mellitus without complications; R53.81 Other malaise; E66.01 Morbid (severe) obesity due to excess calories; E78.5 Hyperlipidemia, unspecified; W19.XXXA Unspecified fall, initial encounter; Y93.89 Activity, other specified; Z68.28 Body mass index [BMI] 28.0-28.9, adult; Z86.16 Personal history of COVID-19; Z87.01 Personal history of pneumonia (recurrent); Y92.89 Other specified places as the place of occurrence of the external cause; Y99.8 Other external cause status